=== PATIENT | female | born 1945 ===

== ENCOUNTER 2018-06-03 15:39 | Inpatient (IN) | payer MEDICARE ==
[2018-06-02 22:30] VITALS: BP 153/65
[~2018-06-03] VITALS: Ht 162.6 cm; Wt 95.5 kg
--- NOTE | ~2018-06-03 | MORECARE ---
CASE MANAGEMENT DISCHARGE SUMMARY PATIENT: KALE ARSHAD UNIT: [id number] ADM DATE: 06/03/18 AGE: 72 : 43 SEX: F ROOM/BED: D.2315 AUTHOR: YESSICA ROE PHYSICIAN: REFERRING PHYSICIAN: NEERU BANUELOS MD DATE OF SERVICE: 06/09/18 Discharge Plan Patient Name: KALE ARSHAD [facility] [facility] 1945 Planned Disposition: Home Anticipated Discharge Date: Discharge Date: Expected LOS: Initial Reviewer: [email or web address] Initial Review Date: 06/09/2018 Generated: 06/09/18 7:45 pm Comments DCP- Discharge Planning Updated by [email or web address]: Emily Mosqueda on 06/05/18 6:[address] CM attempted to visit patient she is currently on vent and sedated. No family at bedside. CM will continue to follow and assist as needed with discharge planning / needs. Last DP export: 06/05/18 6:34 Patient Name: KALE ARSHAD Page [phone] at 1845 All edits/amendments must be made on the electronic document DICTATION DATE: 06/09/181843 WEATHERSTRIP MACHINE OPERATOR: JAMES 06/09/181843 RPT#: [id number] DC DATE: STATUS: ADM IN [facility] [address] [place] [address] END OF REPORT
--- NOTE | ~2018-06-03 | MORECARE ---
CASE MANAGEMENT DISCHARGE SUMMARY PATIENT: KALE ARSHAD UNIT: [id number] ADM DATE: 06/03/18 AGE: 72 : 43 SEX: F ROOM/BED: D.2315 AUTHOR: YESSICA ROE PHYSICIAN: REFERRING PHYSICIAN: NEERU BANUELOS MD DATE OF SERVICE: 06/05/18 Discharge Plan Patient Name: KALE ARSHAD [facility] [facility] 1945 Planned Disposition: Anticipated Discharge Date: Discharge Date: Expected LOS: Initial Reviewer: [email or web address] Initial Review Date: 06/03/2018 Generated: 06/05/18 8:34 pm Comments DCP- Discharge Planning Updated by [email or web address]: Emily Mosqueda on 06/05/18 6:[address] CM attempted to visit patient she is currently on vent and sedated. No family at bedside. CM will continue to follow and assist as needed with discharge planning / needs. Patient Name: KALE ARSHAD Page 13579 at 1934 All edits/amendments must be made on the electronic document DICTATION DATE: 06/05/181933 GENERAL OFFICE ASSOCIATE: JAMES 06/05/181933 RPT#: [id number] DC DATE: STATUS: ADM IN [facility] [address] [place] [address] END OF REPORT
--- NOTE | ~2018-06-03 | MORECARE ---
CASE MANAGEMENT DISCHARGE SUMMARY PATIENT: KALE ARSHAD UNIT: [id number] ADM DATE: 06/03/18 AGE: 72 : 43 SEX: F ROOM/BED: D.2315 AUTHOR: YESSICA ROE PHYSICIAN: REFERRING PHYSICIAN: NEERU BANUELOS MD DATE OF SERVICE: 06/18/18 Discharge Plan Patient Name: KALE ARSHAD Facility: [facility]:[place] : 1945 Planned Disposition: Home Anticipated Discharge Date: Discharge Date: Expected LOS: Initial Reviewer: [email or web address] Initial Review Date: 06/09/2018 Generated: 06/18/18 5:28 pm Comments DCP- Discharge Planning Updated by [email or web address]: Emily Mosqueda on 06/09/18 5:[address] Late Entry 06/09/18 @ 1215 Patient Name: KALE ARSHAD Admission Status: Elective Accout number: [id number] Admission Date: 06-03-2018 : 1945 Admission Diagnosis:HEMOTHORAX Attending: NEERU BANUELOS Current LOS: 6 Anticipated DC Date: Planned Disposition: Home Primary Insurance: MEDICARE A & B Discharge Planning Comments: CM met with patient at bedside. Patient still having shortness of breath unable to communicate without distress. Patient can answer yes and no questions. No family available and no answer at number on facesheet. Patient did say she lived @ home with prior to admit. CM will continue to follow and assist as needed with discharge planning / needs. Carbon Sequestration Plant Engineer: Emily Mosqueda DCP- Discharge Planning Updated by [email or web address]: Emily Mosqueda on 06/05/18 6:[address] CM attempted to visit patient she is currently on vent and sedated. No family at bedside. CM will continue to follow and assist as needed with discharge planning / needs. External Providers External Provider: OTHER-OTHER Next Contact Date: Service Request Date: Service Type: Resolution: Reviewer: Comments: Deonte DP export: 06/09/18 5:57 Patient Name: KALE ARSHAD Page 14741 at 1628 All edits/amendments must be made on the electronic document DICTATION DATE: 06/18/181627 LOSS CLAIM CLERK: JAMES 06/18/181627 RPT#: [id number] MT DATE: STATUS: ADM IN [facility] [address] [place] [address] END OF REPORT
--- NOTE | ~2018-06-03 | EC ---
PATIENT:KALE ARSHAD DATE OF SERVICE: 06/03/18 SEX: F MEDICAL RECORD: [id number] DATE OF : 41 LOCATION:[place] [address] AGE OF PATIENT: 72 ADMISSION DATE: 06/03/18 REFERRING PHYSICIAN: INTERPRETING PHYSICIAN: RAMAN HINES MD ECHOCARDIOGRAM REPORT ECHO CHARGES 4 ECHO COMPLETE Date: 06/04/18 CLINICAL DIAGNOSIS: AFIB ECHOCARDIOGRAPHIC MEASUREMENTS (adult normal given) AC root (d.<3.7cm) 2.7 cm LV Septum d (<1.2 cm> 1.6 cm Valve Excursion 1.1 cm LV Septum (systole) 1.7 cm Left Atria (s.<4.0cm> 4.1 cm LVPW d(<1.2cm) 1.6 cm RV (d.<2.3cm) 3.4 cm LVPW (sytole) 2.0 cm LV diastole(<5.6CM) 4.0 cm MV E-F(>70mm/sec) cm LV systole 3.3 cm LVOT Diameter 1.9 cm MV exc.(>10mm) 1.2 cm Est.ejection fraction (50-75%) % DOPPLER: LVIT cm/sec A 43.0 cm/sec E 91.0 cm/sec LA cm/sec RVSP 39 mmHg LVOT 87 cm/sec AOP1/2T 686 m/s Asc. Ao 115 cm/sec RVOT 73 cm/sec RA cm/sec PA 111 cm/sec AV Gradient Peak 5.35 mmHg AV Mean 2.85 mmHg AV Area 2.4 cm MV Gradient Peak 4.16 mmHg MV Mean 1.36 mmHg MV Area cm COMMENTS: International Nurse: Kaushal EM Document Controller: 2 Dr. Abdi TAPE# PACS Pericardial Effusion N DATE OF SERVICE: 06/04/2018 FINDINGS: 1. Left ventricular chamber size is within normal limits. Left ventricular systolic function is mild to moderately reduced. Overall ejection fraction is estimated at 35% to 40%. 2. Left atrium is mildly dilated at 4.1 cm. Right atrium and right ventricular chamber sizes are within normal limit. 3. Valvular structures have normal structure and motion. 4. Doppler interrogation reveals mild aortic insufficiency, mild mitral ECHOCARDIOGRAM REPORT [id number] KALE ARSHAD regurgitation, and moderate tricuspid regurgitation. No other valvular insufficiency or stenosis. Pulmonary systolic pressure is normal, estimated at 39 mmHg. 5. No evidence of pericardial effusion or left ventricular thrombus. TRANSINT:[id number] Voice Confirmation ID: [id number] DOCUMENT ID: [id number] RAMAN HINES MD at 1856 CC: [id number] DICTATION DATE: 06/04/18 1546 SPECIALIZED LANGUAGE INSTRUCTOR: 06/04/18 191 ADM IN [facility] [address] [place] [address]
--- NOTE | ~2018-06-03 | CN ---
PATIENT NAME:KALE OROZCO MEDICAL RECORD: [id number] : 41 LOCATION:[place].2315 ADMIT DATE: 06/03/18 ACCOUNT: [id number] CONSULTING PHYSICIAN: BANDAR FERRERA MD REFERRING PHYSICIAN: NEERU DOAN MD DATE OF CONSULTATION: 06/04/2018 REQUESTING PHYSICIAN: Dr. Neeru Doan. REASON FOR CONSULTATION: Vent management, right hemothorax. HISTORY OF PRESENT ILLNESS: Ms. Orozco is a 72-year-old female who is transferred from [place] where she was initially admitted with shortness of breath and COPD exacerbation. Yesterday, she norris'd down and coded and the patient was intubated. The CT scan showed a large right hemothorax. The patient was transferred over here for advanced care. Now, the history is taken by reviewing the patient's note as well as talking to the nursing staff. REVIEW OF SYSTEMS: The detail is not obtainable. PAST MEDICAL HISTORY: 1. COPD. 2. Hypertension. 3. History of associated asthma. 4. Hyperlipidemia. 5. Congestive heart failure. 6. Arthritis. PAST SURGICAL HISTORY: She has a right knee surgery. Now, she is status post right thoracotomy. ALLERGIES: No known drug allergy. MEDICATIONS: Proud[employer] is reviewed. PERSONAL AND SOCIAL HISTORY: The patient has more than 65-lrys-uyzq history of smoking. She quit it 10 years ago. She drinks 2-3 beers a day. FAMILY HISTORY: Noncontributory. PHYSICAL EXAMINATION: GENERAL: Now, the patient is orally intubated and sedated. VITAL SIGNS: Blood pressure is 110/59, pulse is 80, respiration is 14, temperature 97.7, SpO2 is 98%. She is on assist control of 40% oxygen, tidal volume 550. HEENT: Conjunctivae are pink. Sclerae are not icteric. NECK: Supple, no JVD. CHEST: The chest excursion is minimal on the right side. There is dullness on percussion. The chest tube is in place. There are crackles. HEART: Rhythm regular, normal sound, no murmur. ABDOMEN: Soft, bowel sounds present. No hepatosplenomegaly. RECTAL: Deferred. EXTREMITIES: No cyanosis, no clubbing, no pedal edema. CENTRAL NERVOUS SYSTEM: The patient is orally intubated and sedated. CONSULT REPORT [id number] KALE OROZCO CT scan of the chest: There is a fracture of the 4th rib. This is a large hemothorax with a compressive atelectasis. OTHER LABORATORY DATA: CBC: WBC 12.1, hemoglobin 10.2, hematocrit 29.3, the platelet count is 279. Chemistry: Sodium 134, potassium 3.7, BUN is 34, creatinine 1.7. IMPRESSION: 1. Acute hypoxic hypercapnic respiratory failure. 2. Right hemothorax, status post thoracotomy. 3. Fracture of the 4th rib, possible traumatic after a fall. 4. Atelectasis of the right lower lobe, possible underlying pneumonia. 5. Acute exacerbation of COPD. 6. Atrial fibrillation. 7. Aortic insufficiency. 8. Leukocytosis. RECOMMENDATION: 1. Continue mechanical ventilation, adjust the setting. Keep the peak airway pressure of less than 40. 2. DVT and GI bleed prophylaxis. 3. Start her on empiric Levaquin and cefepime. 4. Start methylprednisolone IV. 5. Start on Brovana and budesonide nebulizer. 6. Albuterol ipratropium nebulizer. 7. Follow up labs and chest radiograph. 8. Dr. Medrano help appreciated. Dr. Doan, thank you for involving me in the care of Ms. Orozco. The critical care time is 1 hour. TRANSINT:[id number] Voice Confirmation ID: [id number] DOCUMENT ID: [id number] BANDAR FERRERA MD at 1711 CC: [id number] DICTATION DATE: 06/04/18 1052 MASTER PLANNER: 06/04/18 1104 [place] [address]
--- NOTE | ~2018-06-03 | MORECARE ---
CASE MANAGEMENT DISCHARGE SUMMARY PATIENT: KALE ARSHAD UNIT: [id number] ADM DATE: 06/03/18 AGE: 72 : 43 SEX: F ROOM/BED: D.2234 AUTHOR: BHUPINDERDOC PHYSICIAN: REFERRING PHYSICIAN: NEERU BANUELOS MD DATE OF SERVICE: 06/19/18 Discharge Plan Patient Name: KALE ARSHAD Facility: [facility]:[place] : 1945 Planned Disposition: Home Anticipated Discharge Date: Discharge Date: Expected LOS: Initial Reviewer: [id number] Initial Review Date: 06/09/2018 Generated: 06/19/18 3:48 pm Comments DCP- Discharge Planning Updated by [email or web address]: Lorenza Villar on 06/19/18 1:[address] I received notification from Emily, ICU case management associate, that [facility] in [place] has accepted patient and is ready for her to be transferred there. I called her neighbor Chuyita Salazar at [phone] and informed her and she will inform the patient's . admitting coordinator informed and Bernadine Becerril informed. Brenda informed to call report to [facility] when ambulance is called. Brenda is going to notify patient's sister, Anabel. Discharging today to Hospice in [place]. DCP- Discharge Planning Updated by [email or web address]: Emily Mosqueda on 06/19/18 10:[address] CM called [facility] in [place] to check on status. Larissa wasn't in at this time left message to call as soon as she arrives. CM will continue to follow and assist with discharge planning. DCP- Discharge Planning Updated by [email or web address]: Emily Mosqueda on 06/18/18 8:[address] LATE ENTRY 06/18/18 @ 0789 CM RECIEVED CALL THAT PATIENT HAD BEEN TERMINALLY EXTABATED AND FAMILY WAS REQUESTING HOSPICE CARE. CM CAME AND SPOKE WITH DARLENE ARSHAD AND THEY HAD REQUESTED FOR PATIENT TO BE TRANSFERRED TO [facility]. CM CALLED AND SPOKE WITH LARISSA @ [facility] [phone] AND FAX [phone]. LARISSA REQUESTED CLINICALS BUT SHE SAID SHE MAY NOT BE ABLE TO GET APPROVAL TODAY IT MAYBE IN THE MORNING BEFORE SHE COULD GET APPROVAL. CM EXPLAINED THIS TO FAMILY. CM WILL CONTINUE TO FOLLOW AND ASSIST NEEDED WITH DISCHARGE PLANNING. DCP- Discharge Planning Updated by [id number]: Emily Gonzalezr on 06/09/18 5:[address] Late Entry 06/09/18 @ 1215 Patient Name: KALE ARSHAD Admission Status: Elective Accout number: [id number] Admission Date: 06-03-2018 : 1945 Admission Diagnosis:HEMOTHORAX Attending: NEERU BANUELOS Current LOS: 6 Anticipated DC Date: Planned Disposition: Home Primary Insurance: MEDICARE A & B Discharge Planning Comments: CM met with patient at bedside. Patient still having shortness of breath unable to communicate without distress. Patient can answer yes and no questions. No family available and no answer at number on facesheet. Patient did say she lived @ home with prior to admit. CM will continue to follow and assist as needed with discharge planning / needs. Associate Relations Specialist: Emily Mosqueda DCP- Discharge Planning Updated by [email or web address]: Emily Gonzalezr on 06/05/18 6:[address] CM attempted to visit patient she is currently on vent and sedated. No family at bedside. CM will continue to follow and assist as needed with discharge planning / needs. Coverage Notice Reviewer: [email or web address] Ghulam Villar Notice Issued Date-Time: 06/19/2018 14:43 Notice Type: IM Discharge Notice Notice Delivered To: Other Relationship to Patient: Histologic Technician Name: Chuyita Salazar Delivery Method: PHONE - Phone Brandi Days: Prior Verbal Notification: Recipient Understood Notice: Yes Recipient Signature: Med Rec Note Co-signed by Attending: Coverage Notice Comment: Explained IMM, friend agrees with transfer, IMM left at bedside. Patient is nonverbal. Last DP export: 06/19/18 10:38 Patient Name: KALE ARSHAD Page 46969 at 1449 All edits/amendments must be made on the electronic document DICTATION DATE: 06/19/188 BRAKE RIDER: JAMES 06/19/18 1448 RPT#: [id number] DC DATE: STATUS: ADM IN [place] [address] [place] [address] END OF REPORT
--- NOTE | ~2018-06-03 | MORECARE ---
CASE MANAGEMENT DISCHARGE SUMMARY PATIENT: KALE ARSHAD UNIT: [id number] ADM DATE: 06/03/18 AGE: 72 : 43 SEX: F ROOM/BED: D.2315 AUTHOR: BHUPINDERDOC PHYSICIAN: REFERRING PHYSICIAN: NEERU BANUELOS MD DATE OF SERVICE: 06/18/18 Discharge Plan Patient Name: KALE ARSHAD Facility: [facility]:[place] : 1945 Planned Disposition: Home Anticipated Discharge Date: Discharge Date: Expected LOS: Initial Reviewer: [email or web address] Initial Review Date: 06/09/2018 Generated: 06/18/18 10:04 pm Comments DCP- Discharge Planning Updated by [email or web address]: Emily Mosqueda on 06/18/18 8:[address] LATE ENTRY 06/18/18 @ 9913 CM RECIEVED CALL THAT PATIENT HAD BEEN TERMINALLY EXTABATED AND FAMILY WAS REQUESTING HOSPICE CARE. CM CAME AND SPOKE WITH DARLENE ARSHAD AND THEY HAD REQUESTED FOR PATIENT TO BE TRANSFERRED TO [facility]. CM CALLED AND SPOKE WITH LUISITO @ [facility] [phone] AND FAX [phone]. LUISITO REQUESTED CLINICALS BUT SHE SAID SHE MAY NOT BE ABLE TO GET APPROVAL TODAY IT MAYBE IN THE MORNING BEFORE SHE COULD GET APPROVAL. CM EXPLAINED THIS TO FAMILY. CM WILL CONTINUE TO FOLLOW AND ASSIST NEEDED WITH DISCHARGE PLANNING. DCP- Discharge Planning Updated by [email or web address]: Emily Mosqueda on 06/09/18 5:[address] Late Entry 06/09/18 @ 3027 Patient Name: KALE ARSHAD Admission Status: Elective Accout number: [id number] Admission Date: 06-03-2018 : 1945 Admission Diagnosis:HEMOTHORAX Attending: NEERU BANUELOS Current LOS: 6 Anticipated DC Date: Planned Disposition: Home Primary Insurance: MEDICARE A & B Discharge Planning Comments: CM met with patient at bedside. Patient still having shortness of breath unable to communicate without distress. Patient can answer yes and no questions. No family available and no answer at number on facesheet. Patient did say she lived @ home with prior to admit. CM will continue to follow and assist as needed with discharge planning / needs. Java Core Developer: Emily Mosqueda DCP- Discharge Planning Updated by [email or web address]: Emily Mosqueda on 06/05/18 6:[address] CM attempted to visit patient she is currently on vent and sedated. No family at bedside. CM will continue to follow and assist as needed with discharge planning / needs. Last DP export: 06/18/18 3:28 Patient Name: KALE ARSHAD Page 49791 at 210 All edits/amendments must be made on the electronic document DICTATION DATE: 06/18/182103 DRY KILN OPERATOR HELPER: JAMES 06/18/182103 RPT#: [id number] [place] DATE: STATUS: ADM IN [facility] [address] [place] [address] END OF REPORT
--- NOTE | ~2018-06-03 | MORECARE ---
CASE MANAGEMENT DISCHARGE SUMMARY PATIENT: KALE ARSHAD UNIT: [id number] ADM DATE: 06/03/18 AGE: 72 : 43 SEX: F ROOM/BED: D.2234 AUTHOR: BHUPINDERDOC PHYSICIAN: REFERRING PHYSICIAN: NEERU BANUELOS MD DATE OF SERVICE: 06/19/18 Discharge Plan Patient Name: KALE ARSHAD Facility: [facility]:[place] : 1945 Planned Disposition: Home Anticipated Discharge Date: Discharge Date: Expected LOS: Initial Reviewer: [email or web address] Initial Review Date: 06/09/2018 Generated: 06/19/18 12:38 pm Comments DCP- Discharge Planning Updated by [email or web address]: Emily Mosqueda on 06/19/18 10:[address] CM called [facility] in [place] to check on status. Larissa wasn't in at this time left message to call as soon as she arrives. CM will continue to follow and assist with discharge planning. DCP- Discharge Planning Updated by [id number]: Emily Mosqueda on 06/18/18 8:[address] LATE ENTRY 06/18/18 @ 2655 CM RECIEVED CALL THAT PATIENT HAD BEEN TERMINALLY EXTABATED AND FAMILY WAS REQUESTING HOSPICE CARE. CM CAME AND SPOKE WITH DARLENE ARSHAD AND THEY HAD REQUESTED FOR PATIENT TO BE TRANSFERRED TO [facility]. CM CALLED AND SPOKE WITH LARISSA @ [facility] [phone] AND FAX [phone]. LARISSA REQUESTED CLINICALS BUT SHE SAID SHE MAY NOT BE ABLE TO GET APPROVAL TODAY IT MAYBE IN THE MORNING BEFORE SHE COULD GET APPROVAL. CM EXPLAINED THIS TO FAMILY. CM WILL CONTINUE TO FOLLOW AND ASSIST NEEDED WITH DISCHARGE PLANNING. DCP- Discharge Planning Updated by [id number]: Emily Mosqueda on 06/09/18 5:[address] Late Entry 06/09/18 @ 4504 Patient Name: KALE ARSHAD Admission Status: Elective Accout number: [id number] Admission Date: 06-03-2018 : 1945 Admission Diagnosis:HEMOTHORAX Attending: NEERU BANUELOS Current LOS: 6 Anticipated DC Date: Planned Disposition: Home Primary Insurance: MEDICARE A & B Discharge Planning Comments: CM met with patient at bedside. Patient still having shortness of breath unable to communicate without distress. Patient can answer yes and no questions. No family available and no answer at number on facesheet. Patient did say she lived @ home with prior to admit. CM will continue to follow and assist as needed with discharge planning / needs. Prison Guard Supervisor: Emily Mosqueda DCP- Discharge Planning Updated by [email or web address]: Emily Mosqueda on 06/05/18 6:[address] CM attempted to visit patient she is currently on vent and sedated. No family at bedside. CM will continue to follow and assist as needed with discharge planning / needs. Last DP export: 06/18/18 8:04 Patient Name: KALE ARSHAD Page 14615 at 1138 All edits/amendments must be made on the electronic document DICTATION DATE: 06/19/181136 GLAZIER STRUCTURAL GLASS: JAMES 06/19/181136 RPT#: [id number] DC DATE: STATUS: ADM IN [facility] [address] [place] [address] END OF REPORT
--- NOTE | ~2018-06-03 | OP ---
PATIENT NAME: KALE ARSHAD MEDICAL RECORD: [id number] :41 LOCATION:[facility] D.2315 ADMISSION DATE:06/03/18 SURGEON: NAIMA MEDRANO MD DATE OF OPERATION: 06/04/2018 SURGEON: Naima Medrano MD ANESTHESIA: A 1% local lidocaine. OPERATION PERFORMED: Insertion of #28 chest tube, right side. PREOPERATIVE DIAGNOSIS: Right hemothorax. POSTOPERATIVE DIAGNOSIS: Right hemothorax. INDICATION FOR OPERATION: Hemothorax. FINDINGS OF THE OPERATION: A 400 cc bloody fluid, right hemithorax. The chest tube was put in as an emergency. There was no family present that they would notify. DESCRIPTION OF PROCEDURE: The patient was turned in a left lateral decubitus position. Right chest prepped and draped in sterile field. A 1% lidocaine was infiltrated over the 8th rib. A small incision was made and a suture placed. A 28 trocar was then introduced in the right hemithorax, connected to underwater seal and suction. The sterile dressing was secured with a large Op-Site. The patient tolerated the procedure well and will be sent for another CT scan soon. TRANSINT:[id number] Voice Confirmation ID: [id number] DOCUMENT ID: [id number] NAIMA MEDRANO MD at 1001 CC: [id number] DICTATION DATE: 06/04/18 0345 ELECTROTYPE FINISHER: 06/04/18 0510 ADM IN [place] [address] [place] [address]
--- NOTE | ~2018-06-03 | MORECARE ---
CASE MANAGEMENT DISCHARGE SUMMARY PATIENT: KALE ARSHAD UNIT: [id number] ADM DATE: 06/03/18 AGE: 72 : 43 SEX: F ROOM/BED: D.2315 AUTHOR: YESSICA ROE PHYSICIAN: REFERRING PHYSICIAN: NEERU BANUELOS MD DATE OF SERVICE: 06/09/18 Discharge Plan Patient Name: KALE ARSHAD Facility: [facility] : 1945 Planned Disposition: Home Anticipated Discharge Date: Discharge Date: Expected LOS: Initial Reviewer: [id number] Initial Review Date: 06/09/2018 Generated: 06/09/18 7:57 pm Comments DCP- Discharge Planning Updated by [email or web address]: Emily Mosqueda on 06/09/18 5:[address] Late Entry 06/09/18 @ 1215 Patient Name: KALE ARSHAD Admission Status: Elective Accout number: [id number] Admission Date: 06-03-2018 : 1945 Admission Diagnosis:HEMOTHORAX Attending: NEERU BANUELOS Current LOS: 6 Anticipated DC Date: Planned Disposition: Home Primary Insurance: MEDICARE A & B Discharge Planning Comments: CM met with patient at bedside. Patient still having shortness of breath unable to communicate without distress. Patient can answer yes and no questions. No family available and no answer at number on facesheet. Patient did say she lived @ home with prior to admit. CM will continue to follow and assist as needed with discharge planning / needs. Cutting Room Supervisor: Emily Mosqueda DCP- Discharge Planning Updated by [id number]: Emily Mosqueda on 06/05/18 6:[address] CM attempted to visit patient she is currently on vent and sedated. No family at bedside. CM will continue to follow and assist as needed with discharge planning / needs. Last DP export: 06/09/18 5:45 Patient Name: KALE ARSHAD Page 68209 at 0727 All edits/amendments must be made on the electronic document DICTATION DATE: 06/09/181856 COREMAKER MACHINE: JAMES 06/09/181856 RPT#: [id number] [place] DATE: STATUS: ADM IN [facility] [address] [place] [address] END OF REPORT
[2018-06-03 22:45] VITALS: BP 123/62
[2018-06-03 23:00] VITALS: BP 102/56
[2018-06-03 23:12] LABS: HEMATOCRIT 25.1 % (36.0-48.0); HEMOGLOBIN 8.6 g/dL (12-16); MCH 30.8 pg (26.0-34.0); MCHC 34.3 g/dL (31.0-37.0); MEAN PLATELET VOLUME 9.4 fL (7.4-10.4); PLATELET COUNT 113 10x3/uL (130-400); RBC 2.79 10x6/uL (4.00-5.40); RDW 14.3 % (11.5-14.5)
[2018-06-03 23:15] VITALS: BP 104/57
[2018-06-03 23:20] LABS: APTT 33.1 SECONDS (22.8-39.4); INR 1.26 (0.85-1.17); PROTIME 15.5 SECONDS (11.6-15.0)
[2018-06-03 23:30] VITALS: BP 102/59
[2018-06-03 23:32] LABS: ALBUMIN 2.9 g/dL (3.4-5.0); ANION GAP 8.5 mmol/L (8-16); BILIRUBIN - TOTAL 0.69 mg/dL (0.2-1.3); CARBON DIOXIDE 33.6 mmol/L (21.0-32.0); CREATININE - SERUM 1.6 mg/dL (0.6-1.3); POTASSIUM - SERUM 4.1 mmol/L (3.5-5.1); PROTEIN - SERUM 5.7 g/dL (6.4-8.2)
[2018-06-03 23:45] VITALS: BP 95/50
[2018-06-03 23:50] LABS: LYMPHOCYTES 6 % (15-50); MONOCYTES 2 % (2-11); NEUTROPHILS 88 % (40-80); PLATELET ESTIMATE DECREASED; TARGET CELLS 1+
[2018-06-03 23:51] LABS: HYPOCHROMASIA 1+
[2018-06-04] VITALS (38 sets, daily range): BP systolic 74–169; BP diastolic 47–81; Ht 162.6 cm; Wt 95.5 kg
[2018-06-04 06:48] LABS: BASOPHILS 0.1 % (0-2); EOSINOPHILS 0.2 % (0-7); HEMATOCRIT 29.3 % (36.0-48.0); HEMOGLOBIN 10.2 g/dL (12-16); IMMATURE GRANULOCYTES 0.6 % (0-5); LYMPHOCYTES 8.5 % (15-50); MCH 31.2 pg (26.0-34.0); MCHC 34.8 g/dL (31.0-37.0); MCV 89.6 fL (80.0-100.0); MEAN PLATELET VOLUME 9.5 fL (7.4-10.4); MONOCYTES 5.6 % (2-11); RBC 3.27 10x6/uL (4.00-5.40); RDW 13.8 % (11.5-14.5)
[2018-06-04 06:50] LABS: PLATELET COUNT 79 10x3/uL (130-400); WBC 12.1 10x3/uL (4.8-10.8)
[2018-06-04 07:54] LABS: CALCIUM 7.1 mg/dL (8.5-10.1); CARBON DIOXIDE 29.7 mmol/L (21.0-32.0); CREATININE - SERUM 1.7 mg/dL (0.6-1.3); MAGNESIUM - SERUM 1.7 mg/dL (1.8-2.4); POTASSIUM - SERUM 3.7 mmol/L (3.5-5.1)
[2018-06-04 13:36] LABS: BASOPHILS 0.1 % (0-2); EOSINOPHILS 0.2 % (0-7); HEMATOCRIT 30.2 % (36.0-48.0); HEMOGLOBIN 10.5 g/dL (12-16); IMMATURE GRANULOCYTES 0.8 % (0-5); LYMPHOCYTES 7.9 % (15-50); MCHC 34.8 g/dL (31.0-37.0); MCV 89.1 fL (80.0-100.0); MEAN PLATELET VOLUME 9.9 fL (7.4-10.4); MONOCYTES 5.2 % (2-11); NEUTROPHILS 85.8 % (40-80); PLATELET COUNT 85 10x3/uL (130-400); RBC 3.39 10x6/uL (4.00-5.40); RDW 14.1 % (11.5-14.5)
[2018-06-04 14:47] LABS: ERYTHROCYTE SEDIMENTATION RATE 1 mm/hr (0-30)
[2018-06-04 18:13] LABS: BASOPHILS 0.1 % (0-2); EOSINOPHILS 0.1 % (0-7); HEMATOCRIT 28.7 % (36.0-48.0); IMMATURE GRANULOCYTES 0.8 % (0-5); LYMPHOCYTES 4.4 % (15-50); MCH 31.3 pg (26.0-34.0); MCHC 34.8 g/dL (31.0-37.0); MCV 89.7 fL (80.0-100.0); MEAN PLATELET VOLUME 9.5 fL (7.4-10.4); NEUTROPHILS 89.6 % (40-80); PLATELET COUNT 79 10x3/uL (130-400); RDW 14.5 % (11.5-14.5); WBC 15.5 10x3/uL (4.8-10.8)
[2018-06-05] VITALS (21 sets, daily range): BP systolic 139–171; BP diastolic 55–89
[2018-06-05 01:03] LABS: BASOPHILS 0.1 % (0-2); EOSINOPHILS 0 % (0-7); HEMATOCRIT 27.7 % (36.0-48.0); HEMOGLOBIN 9.6 g/dL (12-16); IMMATURE GRANULOCYTES 0.8 % (0-5); LYMPHOCYTES 3.7 % (15-50); MCH 31.3 pg (26.0-34.0); MCHC 34.7 g/dL (31.0-37.0); MCV 90.2 fL (80.0-100.0); MEAN PLATELET VOLUME 9.1 fL (7.4-10.4); MONOCYTES 4.9 % (2-11); NEUTROPHILS 90.5 % (40-80); PLATELET COUNT 79 10x3/uL (130-400); RBC 3.07 10x6/uL (4.00-5.40); RDW 14.5 % (11.5-14.5); WBC 17.1 10x3/uL (4.8-10.8)
[2018-06-05 05:40] LABS: BASOPHILS 0.1 % (0-2); EOSINOPHILS 0 % (0-7); HEMATOCRIT 27.6 % (36.0-48.0); HEMOGLOBIN 9.4 g/dL (12-16); IMMATURE GRANULOCYTES 0.9 % (0-5); LYMPHOCYTES 3.4 % (15-50); MCHC 34.1 g/dL (31.0-37.0); MCV 91.1 fL (80.0-100.0); MEAN PLATELET VOLUME 9.6 fL (7.4-10.4); NEUTROPHILS 90.6 % (40-80); PLATELET COUNT 87 10x3/uL (130-400); RBC 3.03 10x6/uL (4.00-5.40); RDW 14.6 % (11.5-14.5); WBC 17.2 10x3/uL (4.8-10.8)
[2018-06-05 05:52] LABS: INR 1.17 (0.85-1.17); PROTIME 14.6 SECONDS (11.6-15.0)
[2018-06-05 06:05] LABS: CALCIUM 7.7 mg/dL (8.5-10.1); CARBON DIOXIDE 28.9 mmol/L (21.0-32.0); CREATININE - SERUM 1.8 mg/dL (0.6-1.3); POTASSIUM - SERUM 3.9 mmol/L (3.5-5.1)
[2018-06-05 06:50] LABS: APPEARANCE CLEAR (CLEAR); BILIRUBIN NEGATIVE (NEGATIVE); COLOR YELLOW (YELLOW); GLUCOSE NEGATIVE (NEGATIVE); KETONE NEGATIVE (NEGATIVE); NITRITE NEGATIVE (NEGATIVE); PROTEIN NEGATIVE (NEGATIVE); SPECIFIC GRAVITY 1.015 (1.005-1.020); UROBILINOGEN NORMAL (NORMAL)
[2018-06-05 12:56] LABS: BASOPHILS 0 % (0-2); EOSINOPHILS 0 % (0-7); HEMATOCRIT 25.6 % (36.0-48.0); HEMOGLOBIN 8.8 g/dL (12-16); IMMATURE GRANULOCYTES 0.9 % (0-5); LYMPHOCYTES 3.8 % (15-50); MCH 31.7 pg (26.0-34.0); MCHC 34.4 g/dL (31.0-37.0); MCV 92.1 fL (80.0-100.0); MEAN PLATELET VOLUME 9.5 fL (7.4-10.4); MONOCYTES 4.1 % (2-11); NEUTROPHILS 91.2 % (40-80); PLATELET COUNT 80 10x3/uL (130-400); RBC 2.78 10x6/uL (4.00-5.40); RDW 14.6 % (11.5-14.5); WBC 14.4 10x3/uL (4.8-10.8)
[2018-06-05 16:15] LABS: SPE - A/G RATIO 1.2 (0.7-1.7); SPE - ALBUMIN 2.5 g/dL (2.9-4.4); SPE - ALPHA-1 GLOBULIN 0.2 g/dL (0.0-0.4); SPE - ALPHA-2 GLOBULIN 0.5 g/dL (0.4-1.0); SPE - BETA GLOBULIN 0.7 g/dL (0.7-1.3); SPE - GAMMA GLOBULIN 0.6 g/dL (0.4-1.8); SPE - M-SPIKE Not Observed g/dL (Not Observed); SPE - TOTAL PROTEIN 4.6 g/dL (6.0-8.5)
[2018-06-05 18:20] LABS: BASOPHILS 0 % (0-2); EOSINOPHILS 0 % (0-7); HEMATOCRIT 25.1 % (36.0-48.0); HEMOGLOBIN 8.6 g/dL (12-16); IMMATURE GRANULOCYTES 0.7 % (0-5); LYMPHOCYTES 3.2 % (15-50); MCH 31.6 pg (26.0-34.0); MCHC 34.3 g/dL (31.0-37.0); MCV 92.3 fL (80.0-100.0); MEAN PLATELET VOLUME 9.2 fL (7.4-10.4); MONOCYTES 5.1 % (2-11); PLATELET COUNT 78 10x3/uL (130-400); RBC 2.72 10x6/uL (4.00-5.40); RDW 14.6 % (11.5-14.5); WBC 12.8 10x3/uL (4.8-10.8)
[2018-06-06] VITALS (23 sets, daily range): BP systolic 124–158; BP diastolic 50–77
[2018-06-06 00:59] LABS: BASOPHILS 0 % (0-2); EOSINOPHILS 0 % (0-7); HEMATOCRIT 26.9 % (36.0-48.0); HEMOGLOBIN 8.9 g/dL (12-16); IMMATURE GRANULOCYTES 0.6 % (0-5); LYMPHOCYTES 2.1 % (15-50); MCH 30.9 pg (26.0-34.0); MCHC 33.1 g/dL (31.0-37.0); MCV 93.4 fL (80.0-100.0); MEAN PLATELET VOLUME 8.8 fL (7.4-10.4); MONOCYTES 3.7 % (2-11); NEUTROPHILS 93.6 % (40-80); PLATELET COUNT 78 10x3/uL (130-400); RBC 2.88 10x6/uL (4.00-5.40); RDW 14.6 % (11.5-14.5); WBC 14.4 10x3/uL (4.8-10.8)
[2018-06-06 04:55] LABS: BASOPHILS 0 % (0-2); EOSINOPHILS 0.1 % (0-7); HEMATOCRIT 27.2 % (36.0-48.0); IMMATURE GRANULOCYTES 0.7 % (0-5); LYMPHOCYTES 2.2 % (15-50); MCH 31.1 pg (26.0-34.0); MCHC 33.1 g/dL (31.0-37.0); MCV 94.1 fL (80.0-100.0); MEAN PLATELET VOLUME 9.4 fL (7.4-10.4); MONOCYTES 3.9 % (2-11); NEUTROPHILS 93.1 % (40-80); PLATELET COUNT 83 10x3/uL (130-400); RBC 2.89 10x6/uL (4.00-5.40); RDW 14.5 % (11.5-14.5); WBC 14.7 10x3/uL (4.8-10.8)
[2018-06-06 05:10] LABS: ANION GAP 9.2 mmol/L (8-16); CALCIUM 7.7 mg/dL (8.5-10.1); CARBON DIOXIDE 29.9 mmol/L (21.0-32.0); POTASSIUM - SERUM 4.1 mmol/L (3.5-5.1)
[2018-06-06 05:16] LABS: CREATININE - SERUM 1.3 mg/dL (0.6-1.3)
[2018-06-06 10:22] LABS: CREATININE - URINE 76.3 mg/dL (30-125); PRO/CRE RATIO URINE 0.9 mg/g; PROTEIN - URINE 69.4 mg/dL (0.0-11.9)
[2018-06-06 12:31] LABS: BASOPHILS 0 % (0-2); EOSINOPHILS 0 % (0-7); HEMATOCRIT 27.9 % (36.0-48.0); HEMOGLOBIN 9.1 g/dL (12-16); IMMATURE GRANULOCYTES 0.5 % (0-5); LYMPHOCYTES 2.8 % (15-50); MCHC 32.6 g/dL (31.0-37.0); MCV 94.9 fL (80.0-100.0); MEAN PLATELET VOLUME 9.3 fL (7.4-10.4); MONOCYTES 4.6 % (2-11); NEUTROPHILS 92.1 % (40-80); PLATELET COUNT 86 10x3/uL (130-400); RBC 2.94 10x6/uL (4.00-5.40); RDW 14.7 % (11.5-14.5); WBC 14.8 10x3/uL (4.8-10.8)
[2018-06-06 18:05] LABS: BASOPHILS 0.1 % (0-2); EOSINOPHILS 0 % (0-7); HEMATOCRIT 27.2 % (36.0-48.0); IMMATURE GRANULOCYTES 0.5 % (0-5); LYMPHOCYTES 1.6 % (15-50); MCH 31.5 pg (26.0-34.0); MCHC 33.1 g/dL (31.0-37.0); MCV 95.1 fL (80.0-100.0); MEAN PLATELET VOLUME 9.3 fL (7.4-10.4); MONOCYTES 5.4 % (2-11); NEUTROPHILS 92.4 % (40-80); PLATELET COUNT 82 10x3/uL (130-400); RBC 2.86 10x6/uL (4.00-5.40); RDW 14.6 % (11.5-14.5); WBC 14.4 10x3/uL (4.8-10.8)
[2018-06-07] VITALS (24 sets, daily range): BP systolic 97–155; BP diastolic 37–93
[2018-06-07 01:04] LABS: BASOPHILS 0 % (0-2); EOSINOPHILS 0 % (0-7); HEMATOCRIT 26.6 % (36.0-48.0); HEMOGLOBIN 8.7 g/dL (12-16); IMMATURE GRANULOCYTES 0.4 % (0-5); LYMPHOCYTES 1.9 % (15-50); MCH 31.3 pg (26.0-34.0); MCHC 32.7 g/dL (31.0-37.0); MCV 95.7 fL (80.0-100.0); MEAN PLATELET VOLUME 9.2 fL (7.4-10.4); MONOCYTES 4.8 % (2-11); NEUTROPHILS 92.9 % (40-80); PLATELET COUNT 89 10x3/uL (130-400); RBC 2.78 10x6/uL (4.00-5.40); RDW 14.7 % (11.5-14.5); WBC 13.7 10x3/uL (4.8-10.8)
[2018-06-07 05:35] LABS: ANION GAP 7.8 mmol/L (8-16); CALCIUM 7.3 mg/dL (8.5-10.1); CARBON DIOXIDE 30.7 mmol/L (21.0-32.0); CREATININE - SERUM 1.2 mg/dL (0.6-1.3); POTASSIUM - SERUM 4.5 mmol/L (3.5-5.1)
[2018-06-07 05:37] LABS: BASOPHILS 0 % (0-2); EOSINOPHILS 0 % (0-7); HEMATOCRIT 26.8 % (36.0-48.0); HEMOGLOBIN 8.8 g/dL (12-16); IMMATURE GRANULOCYTES 0.5 % (0-5); LYMPHOCYTES 1.8 % (15-50); MCH 31.4 pg (26.0-34.0); MCHC 32.8 g/dL (31.0-37.0); MCV 95.7 fL (80.0-100.0); MEAN PLATELET VOLUME 9.6 fL (7.4-10.4); MONOCYTES 5.4 % (2-11); NEUTROPHILS 92.3 % (40-80); PLATELET COUNT 95 10x3/uL (130-400); RDW 14.7 % (11.5-14.5); WBC 13.6 10x3/uL (4.8-10.8)
[2018-06-07 05:52] LABS: MAGNESIUM - SERUM 2.3 mg/dL (1.8-2.4)
[2018-06-07 11:52] LABS: BASOPHILS 0 % (0-2); EOSINOPHILS 0 % (0-7); HEMATOCRIT 27.8 % (36.0-48.0); IMMATURE GRANULOCYTES 0.6 % (0-5); LYMPHOCYTES 2.1 % (15-50); MCH 31.4 pg (26.0-34.0); MCHC 32.4 g/dL (31.0-37.0); MCV 96.9 fL (80.0-100.0); MEAN PLATELET VOLUME 9.1 fL (7.4-10.4); NEUTROPHILS 91.3 % (40-80); PLATELET COUNT 87 10x3/uL (130-400); RBC 2.87 10x6/uL (4.00-5.40); RDW 14.6 % (11.5-14.5); WBC 14.8 10x3/uL (4.8-10.8)
[2018-06-07 18:06] LABS: ALP - ISO (ALP) 42 IU/L (39-117); ALP - ISO (BONE) FRACTION 41 % (14-68); ALP - ISO (LIVER) FRACTION 59 % (18-85); ALP - ISO(INTESTINAL) FRACTION 0 % (0-18)
[2018-06-07 18:26] LABS: BASOPHILS 0 % (0-2); EOSINOPHILS 0 % (0-7); HEMATOCRIT 28.5 % (36.0-48.0); HEMOGLOBIN 9.3 g/dL (12-16); IMMATURE GRANULOCYTES 0.7 % (0-5); LYMPHOCYTES 2.2 % (15-50); MCH 31.6 pg (26.0-34.0); MCHC 32.6 g/dL (31.0-37.0); MCV 96.9 fL (80.0-100.0); MEAN PLATELET VOLUME 9.1 fL (7.4-10.4); MONOCYTES 8.4 % (2-11); NEUTROPHILS 88.7 % (40-80); PLATELET COUNT 108 10x3/uL (130-400); RBC 2.94 10x6/uL (4.00-5.40); RDW 14.9 % (11.5-14.5); WBC 18.3 10x3/uL (4.8-10.8)
[2018-06-08] VITALS (25 sets, daily range): BP systolic 120–200; BP diastolic 53–113
[2018-06-08 04:16] LABS: BASOPHILS 0.1 % (0-2); EOSINOPHILS 0.2 % (0-7); HEMATOCRIT 29.4 % (36.0-48.0); HEMOGLOBIN 9.4 g/dL (12-16); IMMATURE GRANULOCYTES 0.8 % (0-5); LYMPHOCYTES 3.8 % (15-50); MONOCYTES 9.1 % (2-11); PLATELET COUNT 107 10x3/uL (130-400); RBC 3.03 10x6/uL (4.00-5.40); RDW 14.8 % (11.5-14.5)
[2018-06-08 05:02] LABS: ANION GAP 7.8 mmol/L (8-16); CALCIUM 7.8 mg/dL (8.5-10.1); CARBON DIOXIDE 31.6 mmol/L (21.0-32.0); CREATININE - SERUM 1.2 mg/dL (0.6-1.3); POTASSIUM - SERUM 4.4 mmol/L (3.5-5.1)
[2018-06-08 12:09] LABS: BASOPHILS 0 % (0-2); EOSINOPHILS 0.1 % (0-7); HEMATOCRIT 29.8 % (36.0-48.0); HEMOGLOBIN 9.4 g/dL (12-16); IMMATURE GRANULOCYTES 0.7 % (0-5); LYMPHOCYTES 4.3 % (15-50); MCH 30.9 pg (26.0-34.0); MCHC 31.5 g/dL (31.0-37.0); MEAN PLATELET VOLUME 8.9 fL (7.4-10.4); MONOCYTES 4.7 % (2-11); NEUTROPHILS 90.2 % (40-80); PLATELET COUNT 100 10x3/uL (130-400); RBC 3.04 10x6/uL (4.00-5.40); RDW 14.9 % (11.5-14.5); WBC 17.1 10x3/uL (4.8-10.8)
[2018-06-08 18:10] LABS: BASOPHILS 0.1 % (0-2); EOSINOPHILS 0 % (0-7); HEMATOCRIT 28.6 % (36.0-48.0); HEMOGLOBIN 9.2 g/dL (12-16); IMMATURE GRANULOCYTES 0.6 % (0-5); LYMPHOCYTES 3.5 % (15-50); MCH 31.5 pg (26.0-34.0); MCHC 32.2 g/dL (31.0-37.0); MCV 97.9 fL (80.0-100.0); MEAN PLATELET VOLUME 9.1 fL (7.4-10.4); MONOCYTES 3.7 % (2-11); NEUTROPHILS 92.1 % (40-80); PLATELET COUNT 91 10x3/uL (130-400); RBC 2.92 10x6/uL (4.00-5.40); RDW 14.9 % (11.5-14.5); WBC 16.7 10x3/uL (4.8-10.8)
[2018-06-08 18:42] LABS: PLATELET ESTIMATE DECREASED
[2018-06-09] VITALS (22 sets, daily range): BP systolic 101–161; BP diastolic 55–98
[2018-06-09 05:38] LABS: BASOPHILS 0 % (0-2); EOSINOPHILS 0 % (0-7); HEMATOCRIT 29.1 % (36.0-48.0); HEMOGLOBIN 9.2 g/dL (12-16); IMMATURE GRANULOCYTES 0.5 % (0-5); LYMPHOCYTES 3.2 % (15-50); MCH 31.2 pg (26.0-34.0); MCHC 31.6 g/dL (31.0-37.0); MCV 98.6 fL (80.0-100.0); MEAN PLATELET VOLUME 9.1 fL (7.4-10.4); MONOCYTES 2.4 % (2-11); NEUTROPHILS 93.9 % (40-80); PLATELET COUNT 93 10x3/uL (130-400); RBC 2.95 10x6/uL (4.00-5.40); RDW 14.9 % (11.5-14.5)
[2018-06-09 05:58] LABS: ANION GAP 10.3 mmol/L (8-16); CALCIUM 7.8 mg/dL (8.5-10.1); CARBON DIOXIDE 29.3 mmol/L (21.0-32.0); MAGNESIUM - SERUM 2.3 mg/dL (1.8-2.4)
[2018-06-09 06:19] LABS: CREATININE - SERUM 1.6 mg/dL (0.6-1.3); PHOSPHOROUS 5.9 mg/dL (2.5-4.9); POTASSIUM - SERUM 5.6 mmol/L (3.5-5.1)
[2018-06-10] VITALS (20 sets, daily range): BP systolic 88–123; BP diastolic 44–75
[2018-06-10 05:20] LABS: HEMATOCRIT 27.8 % (36.0-48.0); HEMOGLOBIN 8.7 g/dL (12-16); MCH 31.3 pg (26.0-34.0); MCHC 31.3 g/dL (31.0-37.0); MEAN PLATELET VOLUME 9.1 fL (7.4-10.4); PLATELET COUNT 95 10x3/uL (130-400); RBC 2.78 10x6/uL (4.00-5.40); RDW 14.9 % (11.5-14.5); WBC 20.3 10x3/uL (4.8-10.8)
[2018-06-10 05:37] LABS: INR 1.11 (0.85-1.17)
[2018-06-10 05:38] LABS: D-DIMER-QUANTITATIVE 1.03 ug/mLFEU (0.20-0.54)
[2018-06-10 05:41] LABS: ALBUMIN 2.1 g/dL (3.4-5.0); ANION GAP 11.5 mmol/L (8-16); BILIRUBIN - TOTAL 0.43 mg/dL (0.2-1.3); CARBON DIOXIDE 29.3 mmol/L (21.0-32.0); CREATININE - SERUM 1.9 mg/dL (0.6-1.3); MAGNESIUM - SERUM 2.4 mg/dL (1.8-2.4); PHOSPHOROUS 6.7 mg/dL (2.5-4.9); POTASSIUM - SERUM 5.8 mmol/L (3.5-5.1); PROTEIN - SERUM 5.7 g/dL (6.4-8.2)
[2018-06-10 07:25] LABS: LYMPHOCYTES 7 % (15-50); MONOCYTES 7 % (2-11); NEUTROPHILS 85 % (40-80); PLATELET ESTIMATE DECREASED
[2018-06-11] VITALS (24 sets, daily range): BP systolic 108–134; BP diastolic 57–77
[2018-06-11 05:23] LABS: BASOPHILS 0 % (0-2); EOSINOPHILS 0.1 % (0-7); HEMATOCRIT 27.5 % (36.0-48.0); HEMOGLOBIN 8.7 g/dL (12-16); IMMATURE GRANULOCYTES 0.5 % (0-5); LYMPHOCYTES 2.3 % (15-50); MCH 31.5 pg (26.0-34.0); MCHC 31.6 g/dL (31.0-37.0); MCV 99.6 fL (80.0-100.0); MEAN PLATELET VOLUME 8.9 fL (7.4-10.4); MONOCYTES 3.8 % (2-11); NEUTROPHILS 93.3 % (40-80); PLATELET COUNT 97 10x3/uL (130-400); RBC 2.76 10x6/uL (4.00-5.40); RDW 15.4 % (11.5-14.5); WBC 19.5 10x3/uL (4.8-10.8)
[2018-06-11 05:33] LABS: ALBUMIN 2.1 g/dL (3.4-5.0); ANION GAP 14.9 mmol/L (8-16); BILIRUBIN - TOTAL 0.45 mg/dL (0.2-1.3); CALCIUM 7.7 mg/dL (8.5-10.1); CARBON DIOXIDE 24.2 mmol/L (21.0-32.0); CREATININE - SERUM 2.3 mg/dL (0.6-1.3); MAGNESIUM - SERUM 2.5 mg/dL (1.8-2.4); PHOSPHOROUS 7.2 mg/dL (2.5-4.9); PROTEIN - SERUM 5.2 g/dL (6.4-8.2)
[2018-06-11 05:36] LABS: POTASSIUM - SERUM 6.1 mmol/L (3.5-5.1)
[2018-06-12] VITALS (24 sets, daily range): BP systolic 116–148; BP diastolic 48–87
[2018-06-12 05:24] LABS: BASOPHILS 0 % (0-2); EOSINOPHILS 0 % (0-7); HEMATOCRIT 25.1 % (36.0-48.0); HEMOGLOBIN 8.1 g/dL (12-16); IMMATURE GRANULOCYTES 0.6 % (0-5); LYMPHOCYTES 2.3 % (15-50); MCH 31.4 pg (26.0-34.0); MCHC 32.3 g/dL (31.0-37.0); MONOCYTES 1.4 % (2-11); NEUTROPHILS 95.7 % (40-80); PLATELET COUNT 87 10x3/uL (130-400); RBC 2.58 10x6/uL (4.00-5.40); RDW 15.4 % (11.5-14.5); WBC 16.3 10x3/uL (4.8-10.8)
[2018-06-12 05:25] LABS: MCV 97.3 fL (80.0-100.0)
[2018-06-12 05:58] LABS: ALBUMIN 1.9 g/dL (3.4-5.0); BILIRUBIN - TOTAL 0.41 mg/dL (0.2-1.3); CALCIUM 7.6 mg/dL (8.5-10.1); CREATININE - SERUM 2.8 mg/dL (0.6-1.3); MAGNESIUM - SERUM 2.3 mg/dL (1.8-2.4); PHOSPHOROUS 7.1 mg/dL (2.5-4.9); PROTEIN - SERUM 5.4 g/dL (6.4-8.2)
[2018-06-13] VITALS (24 sets, daily range): BP systolic 111–152; BP diastolic 49–77
[2018-06-13 04:56] LABS: BASOPHILS 0 % (0-2); EOSINOPHILS 0 % (0-7); HEMATOCRIT 25.6 % (36.0-48.0); HEMOGLOBIN 8.4 g/dL (12-16); IMMATURE GRANULOCYTES 0.7 % (0-5); LYMPHOCYTES 1.6 % (15-50); MCH 31.3 pg (26.0-34.0); MCHC 32.8 g/dL (31.0-37.0); MCV 95.5 fL (80.0-100.0); MEAN PLATELET VOLUME 9.5 fL (7.4-10.4); NEUTROPHILS 93.7 % (40-80); PLATELET COUNT 93 10x3/uL (130-400); RBC 2.68 10x6/uL (4.00-5.40); RDW 15.5 % (11.5-14.5); WBC 17.4 10x3/uL (4.8-10.8)
[2018-06-13 05:08] LABS: ANION GAP 13.1 mmol/L (8-16); CALCIUM 7.5 mg/dL (8.5-10.1); CARBON DIOXIDE 24.4 mmol/L (21.0-32.0); CREATININE - SERUM 3.2 mg/dL (0.6-1.3); MAGNESIUM - SERUM 2.2 mg/dL (1.8-2.4); PHOSPHOROUS 7.3 mg/dL (2.5-4.9); POTASSIUM - SERUM 4.5 mmol/L (3.5-5.1)
[2018-06-14] VITALS (46 sets, daily range): BP systolic 72–179; BP diastolic 45–93
[2018-06-14 05:09] LABS: BASOPHILS 0 % (0-2); EOSINOPHILS 0.1 % (0-7); HEMATOCRIT 25.1 % (36.0-48.0); HEMOGLOBIN 8.3 g/dL (12-16); IMMATURE GRANULOCYTES 0.6 % (0-5); LYMPHOCYTES 1.8 % (15-50); MCH 31.2 pg (26.0-34.0); MCHC 33.1 g/dL (31.0-37.0); MCV 94.4 fL (80.0-100.0); MEAN PLATELET VOLUME 9.6 fL (7.4-10.4); MONOCYTES 3.8 % (2-11); NEUTROPHILS 93.7 % (40-80); PLATELET COUNT 77 10x3/uL (130-400); RBC 2.66 10x6/uL (4.00-5.40); RDW 15.3 % (11.5-14.5); WBC 17.3 10x3/uL (4.8-10.8)
[2018-06-14 05:28] LABS: ALBUMIN 1.7 g/dL (3.4-5.0); ANION GAP 16.7 mmol/L (8-16); BILIRUBIN - TOTAL 0.42 mg/dL (0.2-1.3); CALCIUM 7.3 mg/dL (8.5-10.1); CARBON DIOXIDE 21.9 mmol/L (21.0-32.0); CREATININE - SERUM 3.6 mg/dL (0.6-1.3); POTASSIUM - SERUM 4.6 mmol/L (3.5-5.1); PROTEIN - SERUM 5.3 g/dL (6.4-8.2)
[2018-06-14 16:24] LABS: ANION GAP 20.2 mmol/L (8-16); CALCIUM 7.2 mg/dL (8.5-10.1); CARBON DIOXIDE 19.2 mmol/L (21.0-32.0); CREATININE - SERUM 3.7 mg/dL (0.6-1.3)
[2018-06-14 16:32] LABS: POTASSIUM - SERUM 5.4 mmol/L (3.5-5.1)
[2018-06-15] VITALS (57 sets, daily range): BP systolic 76–152; BP diastolic 37–80
[2018-06-15 04:39] LABS: BASOPHILS 0 % (0-2); EOSINOPHILS 0 % (0-7); HEMATOCRIT 21.7 % (36.0-48.0); HEMOGLOBIN 7.5 g/dL (12-16); IMMATURE GRANULOCYTES 0.8 % (0-5); LYMPHOCYTES 1.9 % (15-50); MCH 31.3 pg (26.0-34.0); MCHC 34.6 g/dL (31.0-37.0); MCV 90.4 fL (80.0-100.0); MEAN PLATELET VOLUME 8.8 fL (7.4-10.4); MONOCYTES 2.1 % (2-11); NEUTROPHILS 95.2 % (40-80); PLATELET COUNT 52 10x3/uL (130-400); RDW 14.7 % (11.5-14.5); WBC 14.5 10x3/uL (4.8-10.8)
[2018-06-15 04:51] LABS: ANION GAP 18.2 mmol/L (8-16); CARBON DIOXIDE 20.9 mmol/L (21.0-32.0); CREATININE - SERUM 3.6 mg/dL (0.6-1.3); MAGNESIUM - SERUM 1.8 mg/dL (1.8-2.4); PHOSPHOROUS 6.4 mg/dL (2.5-4.9); POTASSIUM - SERUM 4.1 mmol/L (3.5-5.1)
[2018-06-15 04:52] LABS: CALCIUM 6.6 mg/dL (8.5-10.1)
[2018-06-15 06:00] LABS: APPEARANCE HAZY (CLEAR); BILIRUBIN NEGATIVE (NEGATIVE); COLOR RED (YELLOW); GLUCOSE NEGATIVE (NEGATIVE); KETONE NEGATIVE (NEGATIVE); NITRITE NEGATIVE (NEGATIVE); PROTEIN 1+ mg/dL (NEGATIVE); UROBILINOGEN NORMAL (NORMAL)
[2018-06-15 06:01] LABS: BACTERIA FEW /hpf (NONE SEEN); EPITHELIAL CELLS 0-5 /hpf (0-5); RED CELLS - URINE >50 /hpf (0-5)
[2018-06-15 06:26] LABS: CREATININE - URINE 29.5 mg/dL (30-125)
[2018-06-15 06:50] LABS: PRO/CRE RATIO URINE 20.8 mg/g; PROTEIN - URINE 614.8 mg/dL (0.0-11.9)
[2018-06-15 20:32] LABS: HEMATOCRIT 22.2 % (36.0-48.0); HEMOGLOBIN 7.7 g/dL (12-16)
[2018-06-16] VITALS (24 sets, daily range): BP systolic 103–139; BP diastolic 53–81
[2018-06-16 02:40] LABS: HEMATOCRIT 25.4 % (36.0-48.0); HEMOGLOBIN 8.7 g/dL (12-16)
[2018-06-16 06:51] LABS: ANION GAP 20.4 mmol/L (8-16); CARBON DIOXIDE 22.3 mmol/L (21.0-32.0); CREATININE - SERUM 3.5 mg/dL (0.6-1.3); POTASSIUM - SERUM 3.7 mmol/L (3.5-5.1)
[2018-06-16 06:53] LABS: CALCIUM 6.4 mg/dL (8.5-10.1)
[2018-06-16 07:13] LABS: BASOPHILS 0.1 % (0-2); EOSINOPHILS 0.1 % (0-7); HEMATOCRIT 24.3 % (36.0-48.0); HEMOGLOBIN 8.5 g/dL (12-16); IMMATURE GRANULOCYTES 0.7 % (0-5); LYMPHOCYTES 1.9 % (15-50); MCH 30.9 pg (26.0-34.0); MEAN PLATELET VOLUME 10.6 fL (7.4-10.4); MONOCYTES 1.7 % (2-11); NEUTROPHILS 95.5 % (40-80); RBC 2.75 10x6/uL (4.00-5.40); RDW 16.3 % (11.5-14.5); WBC 13.7 10x3/uL (4.8-10.8)
[2018-06-16 07:19] LABS: MCV 88.4 fL (80.0-100.0)
[2018-06-16 07:20] LABS: PLATELET COUNT 42 10x3/uL (130-400)
[2018-06-16 22:01] LABS: HEMATOCRIT 26.1 % (36.0-48.0); HEMOGLOBIN 9.1 g/dL (12-16)
[2018-06-17] VITALS (24 sets, daily range): BP systolic 97–143; BP diastolic 54–80
[2018-06-17 05:55] LABS: BASOPHILS 0 % (0-2); EOSINOPHILS 0.1 % (0-7); HEMATOCRIT 27.1 % (36.0-48.0); HEMOGLOBIN 9.5 g/dL (12-16); IMMATURE GRANULOCYTES 1.1 % (0-5); MCH 29.4 pg (26.0-34.0); MCHC 35.1 g/dL (31.0-37.0); MEAN PLATELET VOLUME 9.3 fL (7.4-10.4); MONOCYTES 2.2 % (2-11); NEUTROPHILS 94.6 % (40-80); RBC 3.23 10x6/uL (4.00-5.40); RDW 21.7 % (11.5-14.5); WBC 15.7 10x3/uL (4.8-10.8)
[2018-06-17 06:01] LABS: MCV 83.9 fL (80.0-100.0); PLATELET COUNT 32 10x3/uL (130-400)
[2018-06-17 06:15] LABS: ANION GAP 17.8 mmol/L (8-16); CARBON DIOXIDE 25.9 mmol/L (21.0-32.0); CREATININE - SERUM 3.5 mg/dL (0.6-1.3); POTASSIUM - SERUM 3.7 mmol/L (3.5-5.1); VANCOMYCIN - RANDOM 17.2 ug/mL (10.0-20.0)
[2018-06-17 06:32] LABS: CALCIUM 6.6 mg/dL (8.5-10.1)
[2018-06-18] VITALS (21 sets, daily range): BP systolic 90–142; BP diastolic 50–82
[2018-06-18 05:46] LABS: BASOPHILS 0 % (0-2); EOSINOPHILS 0.1 % (0-7); HEMATOCRIT 26.7 % (36.0-48.0); HEMOGLOBIN 9.3 g/dL (12-16); IMMATURE GRANULOCYTES 1.1 % (0-5); LYMPHOCYTES 2.2 % (15-50); MCH 29.5 pg (26.0-34.0); MCHC 34.8 g/dL (31.0-37.0); MCV 84.8 fL (80.0-100.0); MEAN PLATELET VOLUME 9.3 fL (7.4-10.4); MONOCYTES 2.7 % (2-11); NEUTROPHILS 93.9 % (40-80); RBC 3.15 10x6/uL (4.00-5.40); RDW 21.7 % (11.5-14.5); WBC 14.3 10x3/uL (4.8-10.8)
[2018-06-18 05:50] LABS: PLATELET COUNT 73 10x3/uL (130-400)
[2018-06-18 06:37] LABS: ANION GAP 19.3 mmol/L (8-16); CARBON DIOXIDE 26.2 mmol/L (21.0-32.0); CREATININE - SERUM 3.7 mg/dL (0.6-1.3); POTASSIUM - SERUM 3.5 mmol/L (3.5-5.1); VANCOMYCIN - RANDOM 15.7 ug/mL (10.0-20.0)
[2018-06-18 06:44] LABS: CALCIUM 6.6 mg/dL (8.5-10.1)
[2018-06-19 03:00] VITALS: BP 118/64
[2018-06-19 05:07] LABS: BASOPHILS 0 % (0-2); EOSINOPHILS 0 % (0-7); HEMATOCRIT 33.7 % (36.0-48.0); IMMATURE GRANULOCYTES 1.4 % (0-5); LYMPHOCYTES 1.1 % (15-50); MCH 28.8 pg (26.0-34.0); MCHC 32.6 g/dL (31.0-37.0); MCV 88.2 fL (80.0-100.0); MONOCYTES 3.5 % (2-11); PLATELET COUNT 78 10x3/uL (130-400); RBC 3.82 10x6/uL (4.00-5.40); WBC 20.3 10x3/uL (4.8-10.8)
[2018-06-19 05:24] LABS: CARBON DIOXIDE 25.3 mmol/L (21.0-32.0); CREATININE - SERUM 3.9 mg/dL (0.6-1.3)
[2018-06-19 05:26] LABS: ANION GAP 18.9 mmol/L (8-16); POTASSIUM - SERUM 4.2 mmol/L (3.5-5.1)
[2018-06-19 05:27] LABS: CALCIUM 6.6 mg/dL (8.5-10.1)
[2018-06-19 12:17] VITALS: BP 109/50
== END 2018-06-19 20:09 | disposition hospice, inpatient (51) | DRG 208 ==
LOC: D.ICU 15:39 → D.MS 06-19 09:14
PROVIDERS: Emergency Medicine; Family Medicine; Internal Medicine; Internal Medicine Hematology & Oncology; Internal Medicine Nephrology; Internal Medicine Pulmonary Disease; Radiology Vascular & Interventional Radiology
PROC: 5A1945Z Respiratory Ventilation, 24-96 Consecutive Hours (ICD-10-PCS; 2018-06-04)
PROC: 0BH17EZ Insertion of Endotracheal Airway into Trachea, Via Natural or Artificial Opening (ICD-10-PCS; 2018-06-04)
PROC: 0W9930Z Drainage of Right Pleural Cavity with Drainage Device, Percutaneous Approach (ICD-10-PCS; 2018-06-04)
PROC: 0W9930Z Drainage of Right Pleural Cavity with Drainage Device, Percutaneous Approach (ICD-10-PCS; principal; 2018-06-04 13:15)
PROC: 5A09357 Assistance with Respiratory Ventilation, Less than 24 Consecutive Hours, Continuous Positive Airway Pressure (ICD-10-PCS; 2018-06-10)
PROC: 5A1945Z Respiratory Ventilation, 24-96 Consecutive Hours (ICD-10-PCS; 2018-06-14)
PROC: 0BH17EZ Insertion of Endotracheal Airway into Trachea, Via Natural or Artificial Opening (ICD-10-PCS; 2018-06-14)
DX: J94.2 Hemothorax (principal); I50.43 Acute on chronic combined systolic (congestive) and diastolic (congestive) heart failure; J96.21 Acute and chronic respiratory failure with hypoxia; J96.22 Acute and chronic respiratory failure with hypercapnia; E43 Unspecified severe protein-calorie malnutrition; G93.41 Metabolic encephalopathy; S22.31XA Fracture of one rib, right side, initial encounter for closed fracture; J44.1 Chronic obstructive pulmonary disease with (acute) exacerbation; E87.1 Hypo-osmolality and hyponatremia; J98.11 Atelectasis; D62 Acute posthemorrhagic anemia; N17.9 Acute kidney failure, unspecified; E87.2 Acidosis; Z66 Do not resuscitate; E78.5 Hyperlipidemia, unspecified; I11.0 Hypertensive heart disease with heart failure; I48.0 Paroxysmal atrial fibrillation; D72.829 Elevated white blood cell count, unspecified; I35.1 Nonrheumatic aortic (valve) insufficiency; R41.0 Disorientation, unspecified; R53.81 Other malaise; E87.5 Hyperkalemia; K70.30 Alcoholic cirrhosis of liver without ascites; I27.20 Pulmonary hypertension, unspecified